=== PATIENT | male | born 1975 | race Caucasian/White ===

== ENCOUNTER 2019-09-16 01:07 | Day surgery (SDC) | payer BC, SELFPAY ==
[2019-09-09 10:03] VITALS: BMI 30.2
--- NOTE | 2019-09-14 12:08 | P.HP_ITS ---
H&P: HPI History of Present Illness Chief complaint: Rotator Cuff Tear Narrative: Efe Montemayor is a 44 year old male Who presents with chronic ongoing history of right shoulder pain. He notes weakness and pain with overhead type motion and try to do anything heavy repetitive. This occurred after a pulling type injury back in May of 2019. he has had ongoing pain despite conservative measures including cortisone therapy and anti-inflammatories. His daily activities are limited because of the pain he has trouble sleeping at night his pain is worse with activity somewhat relieved by rest. He has aching and pain and shoulder radiates into his upper arm. Prior to the injury he did not describe any significant problems with the shoulder. An MRI scan at this time shows a small partial thickness tear of the infraspinatus and supraspinatus tendons. There is attenuation of the supraspinatus tendon no evidence of a full-thickness rotator cuff tendon tear is seen. He does have AC joint hypertrophy and synovitis with a type 2-3 acromion. He has irregularity of the anterior labrum suggestive of a small tear labrum is not well characterized on the MRI. The long head of the biceps tendon is not well characterized which may be due to a torn retracted tendon versus severe tendinosis. At this point the patient is where the above findings and discuss further treatment options in detail with Dr. Pavon he would now like to proceed with surgical intervention. Review of Systems Review of Systems: All systems reviewed & are unremarkable except as noted in HPI and below Meds Home Medications and Allergies Home Medications Medication Instructions Recorded Confirmed Type omeprazole 40 mg capsule,delayed 40 mg PO DAILY #30 cap 07/07/19 09/09/19 Rx release ibuprofen 400 mg PO Q6H PRN 09/09/19 09/09/19 History Allergies Allergy/AdvReac Type Severity Reaction Status Date / Time lactose Allergy Gastrointestinal Verified 09/09/19 10:04 Upset Exam Narrative: Exam Narrative: HEENT exam within normal limits hearing and vision are intact. Dentition is good. Lungs clear auscultation. Pulse regular rate rhythm. Abdomen benign bowel sounds positive for quads. Extremities showed the patient's right shoulder to be painful with manipulation and range of motion. He has a positive impingement sign and painful giving way with rotator cuff strength testing. He has full passive and active motion. He has full painless neck motion. Shoulder joint is otherwise stable. Neurovascular the patient is intact. MRI scan is as above. Central nervous system exam within n ormal limits. Assessment and Plan Additional Plan By MRI and exam the patient is noted to have impingement with rotator cuff tendinitis AC joint arthrosis and partial-thickness rotator cuff tendon tear right shoulder, possible biceps/ labral pathology with the above associated findings. The patient is discussed Risks benefits limitations and alternatives to surgery in great detail with Dr. Pavon and he is now ready to proceed with right shoulder arthroscopy acromioplasty open distal clavicle excision rotator cuff tendon debridement and/or repair proceed as indicated with possible biceps tendon release versus tenodesis. the patient is scheduled to go surgery 09/16/2019 at [facility] Dr. Pavon the patient voiced understanding agrees above plan.
[2019-09-16] VITALS (9 sets, daily range): BP systolic 86–130; BP diastolic 49–86; PULSE 72–85; RESP 17–24; TEMP 36.4–36.9; O2SAT 90–98
--- NOTE | 2019-09-16 07:04 | WPDHPUPDATE1 ---
History and Physical Update Update Date/Time: 09/16/19 07:04 History and Physical has been reviewed, including an updated exam of the patient. There are NO changes in the patient's condition. Risks, benefits, and alternatives have been discussed and questions answered. Patient agrees to proceed with procedure.
[2019-09-16] MEDS: LACTATED RINGERS 1,000 ML 30 ML IV CONT ×2 (07:58→10:20)
--- NOTE | 2019-09-16 08:01 | WPDANESEPPF ---
Anes - Initial Pre Proc Eval Procedure: Operation Date: 09/16/19 09:00 Proposed Procedures p Right Shoulder Arthroscopy, Acromioplasty, Open Distal Clavicle Excision, Rotator Cuff Debridement, Rotator Cuff Repair, Bicep Release, Proceed as Indicated - Ye Pavon MD Date/Time: 09/16/19 08:01 Surgeon: Ye Pavon MD Pre Op Diagnosis: Rotator Cuff Tear Patient Data Age: 44 Gender: M Height: 5 ft 1 in Weight: 72.5 kg Last Vital Signs Temp 36.9 C 09/16/19 07:12 Pulse 85 09/16/19 07:12 Resp 20 09/16/19 07:12 BP 130/86 09/16/19 07:12 Pulse Ox 98 09/16/19 07:12 Allergies Allergy/AdvReac Type Severity Reaction Status Date / Time lactose Allergy Gastrointestinal Verified 09/16/19 07:50 Upset Home Medications Medication Instructions Recorded Confirmed Type omeprazole 40 mg capsule,delayed 40 mg PO DAILY #30 cap 07/07/19 09/16/19 Rx release ibuprofen 400 mg PO Q6H PRN 09/09/19 09/16/19 History Patient hx anesthesia problems: none Family hx anesthesia problems: none PMFSH Past Medical History Medical History Obesity Smoker Anes - Eval Final PreProcedure Day of Procedure 09/16/19 08:01 Patient weight: obese Heart: regular rate and rhythm Lungs: clear to auscultation Airway: Mallampati scale class II Neurological: alert and oriented Last oral intake: >/= 8 hours ASA classification: II Emergent: no Anesthetic plan: proceed Anesthesia type and monitoring: general ETT and standard monitoring Informed Consent: The patient's anesthetic plan and its attendant risks and benefits were discussed with the patient/family/POA. Questions were solicited and answers provided to the satisfaction of the patient/family/POA.
--- NOTE | 2019-09-16 08:48 | WPDANESPNB ---
Anes - Peripheral Nerve Block Date/Time: 09/16/19 08:48 I have discussed with the patient/family/POA the placement of a peripheral nerve block for post-operative pain management, including associated risks, benefits, complications, and side effects. Alternative methods of post-operative analgesia were detailed. Questions were solicited and answers provided to the satisfaction of the patient/family/POA. Time-Out: A pre-procedural Time-Out was completed immediately before starting the procedure and confirmed: Patient Identification, Site, Procedure, Patient Position and the Availability of Requisite Equipment. Clinical Indications: Acute post-operative pain management requested by the operative surgeon. Nerve Block Insertion Note Anes-nerve block: interscalene right Patient position: supine Skin prep: chlorhexidine Needle: 22 gauge, stimulating, insulated echogenic needle. Needle length: 50 mm Technique: ultrasound Injectate: bupivacaine 0.5% with epi 5 mcg/ml (30) and dexamethasone (mg) (8) Observations: tolerated well Complications: none Procedure start time:: 839 Procedure end time:: 847
[2019-09-16] MEDS: ceFAZolin 2 GM/D5W 50 ML 2 GM/50 ML BAG IVPB (08:54)
[2019-09-16] MEDS: LIDO 1%/EPINEPHRINE 1:100,000 20 ML VIAL INFILTRATE (09:32)
--- NOTE | 2019-09-16 09:58 | P.OP_ITS ---
Procedure Note - Detailed Date of procedure: 09/16/19 Pre-op diagnosis: Rotator Cuff Tear Post-op diagnosis: same Anesthesia: GETA Surgeon: Ye Pavon MD Fle[employer] Market Seller: Jonathon Dean Estimated blood loss (mL): 50 Drains: No Packing: No Pathology: none sent Complications: No immediate complications Condition: stable Disposition: PACU
--- NOTE | 2019-09-16 10:00 | PM.PROC ---
Procedure Note - Detailed Date of procedure: 09/16/19 Pre-op diagnosis: Rotator Cuff Tear Procedure performed: [side] carpal tunnel release Description of procedure: After sterile prep and drape, I injected the area of intended incision with 10ml of 1% lidocaine. A longitudinal incision was made in line with the ulnar boarder of the third finger. Disection carried down to the fascia, the fascia split and the carpal ligament identified. The carpal ligament was released and the flexor retinaculum was released as well. The nerve was noted to be red purple in color and in continuity. The wound was irrigated, hemostatis was obtained and closed with 3-0 prolene. Anesthesia: MAC Surgeon: Ye Pavon MD Estimated blood loss (mL): 5 Drains: No Packing: No Pathology: none sent Complications: No immediate complications Condition: stable Disposition: same day
--- NOTE | 2019-09-16 10:01 | PM.PROC ---
Procedure Note - Detailed Date of procedure: 09/16/19 Pre-op diagnosis: Rotator Cuff Tear Rotator Cuff tear RIght A/C Arthrosis Biceps Rupture Post-op diagnosis: same Description of procedure: Patient brought to OR 7. After anesthetic and sterile prep and drape standard posterior and lateral portals made. Arthroscopy showed a large Rotator cuff tear (Nickel Sized) and rupture of the biceps. The Biceps stump was debrided. An acromioplasty performed with an abrader. A longitudinal incsision then made and the A/C joint was degenerative and hypertrophic. A distal clavicle procedure performed, removing 3 mm of distal clavicle. The edges debrided smooth. The deltoid split for 2 cm and the rotator cuff tear found and debrided. The greater tuberosity debrided to make a bleeding surface and he cuff sewn down qith 4 #2 ethibond sutures. The deltoin was repaired to itself, the acromion and the trapezius. Skin close with 2-0 Vicryl and michael. Anesthesia: GETA Surgeon: Ye Pavon MD Clinical Documentation Clerk: Jonathon Dean Estimated blood loss (mL): 50 Drains: No Packing: No Pathology: none sent Complications: No immediate complications Condition: stable Disposition: PACU Findings: Large rotator cuff tear (Nickel Sized) A/C arthrosis Biceps rupture
== END 2019-09-16 12:40 | disposition home or self-care (01) ==
PROVIDERS: PCP Internal Medicine; Visit Provider Orthopaedic Surgery
PROC: (CPT 29805; principal; 2019-09-16 09:00)
DX: S46.011A Strain of muscle(s) and tendon(s) of the rotator cuff of right shoulder, initial encounter (principal); S46.111A Strain of muscle, fascia and tendon of long head of biceps, right arm, initial encounter; X50.0XXA Overexertion from strenuous movement or load, initial encounter; M19.011 Primary osteoarthritis, right shoulder; G89.18 Other acute postprocedural pain; E66.9 Obesity, unspecified; Z68.30 Body mass index [BMI] 30.0-30.9, adult
CPT/HCPCS: 23410; 23120; 64415; A4565; J0131; J0330; J0690; J1100; J2250; J2370; J2405; J2704; J3010; J7120

== ENCOUNTER 2019-12-20 20:56 | Emergency (ER) | payer BC, SELFPAY ==
--- NOTE | ~2019-12-20 | XR_ITS ---
EXAMINATION: XR abdomen/kub 1V DATE: 12/20/2019 22:24 INDICATION: Kidney stones with right lower abdominal pain. TECHNIQUE: A supine view of the abdomen on 2 radiographs was obtained. COMPARISON: CT dated 12/20/2019 FINDINGS: Excreted contrast in the renal collecting systems, bladder and throughout much of the left ureter fro m the immediately prior contrast enhanced CT. There is moderate right hydronephrosis. No left-sided h ydroureteronephrosis. A few phleboliths in the pelvis. Normal bowel gas pattern. IMPRESSION: 1. Moderate right hydronephrosis. See immediately prior CT report for further detail. Reviewed, dictated and finalized at location A. IMPRESSION: 1. Moderate right hydronephrosis. See immediately prior CT report for further d etail.
--- NOTE | ~2019-12-20 | CT_ITS ---
EXAMINATION: CT abdomen pelvis w con DATE: 12/20/2019 22:11 INDICATION: Right lower abdominal pain. TECHNIQUE: Computed tomography (CT) of the abdomen and pelvis was performed without intravenous contr ast. Automated exposure control and iterative reconstruction technique were employed. The dose-length product was 699.57 mGy-cm. COMPARISON: 06/06/2018 FINDINGS: 7 mm subpleural nodule at the lingula. Mild mosaic attenuation with scattered groundglass opacities a nd intervening lucency in the bilateral lower lung zones most likely mild atelectasis and subsegmenta l air trapping related to small airway disease. Heart size is normal. No pericardial or pleural effus ion. Mild lower esophageal wall thickening which could be related to reflux. Liver, gallbladder, spleen, pancreas and bilateral adrenal glands are normal. Moderate right hydronep hrosis and mildly delayed right nephrogram. There is subtle haziness to the fat surrounding the proxi mal most right ureter where there appears be urothelial enhancement no obstructing stone. A 2 mm ston e is located in the dependent midline of the bladder suggesting the findings on the right may be rela chemo to recent passage of the stone. There are 3 additional stones in the right kidney the largest clementina suring 2 mm and 3 mm in a lower pole calyx. 2 mm nonobstructing stone in a lower pole calyx of the le ft kidney. There is mild colonic diverticulosis with a sigmoid predominance. There is no adjacent in flammatory change to suggest diverticulitis. Small bowel and appendix are normal. No free intraperito olivia gas or fluid. No pathologically enlarged abdominal or pelvic lymphadenopathy. Minimal scattered degenerative skeletal changes. IMPRESSION: 1. Bilateral nephrolithiasis and moderate right hydronephrosis about the proximal right ureter which may be related to recent passage of a 2 mm stone now seen in the dependent bladder. The delayed right nephrogram suggests persistent at least partial obstruction which may be related to residual obstruc tion secondary to ureteral edema or stricture. 2. Indeterminate 7 mm nodule at the lingula. Recommend follow-up low-dose noncontrast chest CT at 6-1 2 months. Reviewed, dictated and finalized at location A. IMPRESSION: 1. Bilateral nephrolithiasis and moderate right hydronephrosis about the proxim al right ureter which may be related to recent passage of a 2 mm stone now seen in the dependent bladder. The delayed right nephrogram suggests persistent at least partial obstruction which may be related to residual obstruction secondar y to ureteral edema or stricture. 2. Indeterminate 7 mm nodule at the lingula. Recommend follow-up low-dose nonco ntrast chest CT at 6-12 months.
[2019-12-20 21:01] VITALS: BP 142/84; PULSE 73; RESP 20; TEMP 36.2; O2SAT 99
[2019-12-20 21:24] LABS: Basophils Absolute Auto 0.1 K/mm3 (0.0-0.1); Basophils Percent Auto 0.8 % (0.2-1.2); Eosinophils Absolute Auto 1.7 K/mm3 (0-0.3); Hematocrit 42.2 % (42.0-52.0); Hemoglobin 14.4 g/dL (14.0-18.0); Immature Granulocyte Absolute 0.02 K/mm3 (0.00-0.031); Immature Granulocyte Percent A 0.2 % (0-0.5); Lymphocytes Absolute Auto 4.94 K/mm3 (0.9-3.2); Lymphocytes Percent Auto 45.7 % (18.3-44.2); Mean Corpuscular HGB Conc 34.1 g/dl (32-36); Mean Corpuscular Hemoglobin 34.6 pg (26-34); Mean Corpuscular Volume 101.4 fl (80-100); Monocytes Percent Auto 9.3 % (2.6-8.5); Platelet Count Result 297 k/mm3 (150-375); Red Blood Count 4.16 M/mm3 (4.6-6.20); Red Cell Distribution Width 12.8 % (11.5-14.5); White Blood Count 10.8 K/mm3 (4.5-10.0)
[2019-12-20 21:29] LABS: Add Urine Microscopic? YES; Appearance Urine Clear (Clear); Bilirubin Urine Negative (Negative); Blood Urine 3+ (Negative); Color Urine Yellow (Yellow); Glucose Urine UA Negative (Negative); Ketones Urine Negative (Negative); Leukocyte Esterase Ur Negative LEU/UL (Negative); Mucus Urine Heavy /lpf; Nitrate Urine Negative (Negative); Protein Urine 2+ mg/dL (Negative); RBC Urine 51-75 /hpf (0-2); Specific Grav Ur 1.028 (1.001-1.035); Squamous Epithelial Cell Urine Rare /hpf (Few); Urobilinogen Urine Negative mg/dL (<2.0); WBC Urine 0-3 /hpf
[2019-12-20 21:35] LABS: Alanine Aminotransferase 82 U/L (4-50); Albumin Level 4.1 g/dL (3.5-5.1); Alkaline Phosphatase 106 U/L (38-126); Aspartate Amino Transferase 47 U/L (17-59); Bilirubin,Total 0.3 mg/dL (0.2-1.3); Blood Urea Nitrogen 14 mg/dL (9-20); Carbon Dioxide 25 mmol/L (22-30); Chloride 107 mmol/L (98-107); Estimated CRCL calculation 100 ml/min; Estimated Glomerular Filt Rate > 60; Glucose 118 mg/dL (75-110); Lipase 100 U/L (23-300); Potassium 4.3 mmol/L (3.4-5.0); Sodium 140 mmol/L (137-145)
[2019-12-20] MEDS: ONDANSETRON INJ 4 MG/2 ML VIAL IV PUSH (21:49)
[2019-12-20] MEDS: LACTATED RINGERS 1,000 ML 999 ML IV CONT (21:49)
--- NOTE | 2019-12-20 22:18 | ED.ABDPAIN ---
HPI - Abdominal Pain General Chief Complaint: Abdominal Pain Stated Complaint: abd pain Time Seen by Provider: 12/20/19 21:17 Source: patient Mode of arrival: ambulatory History of Present Illness HPI narrative: This patient is a 44 year old male with history of kidney stones who presents for evaluation of right lower abdominal pain. He states this pain has been constant for 1 week and he thought it was just due to gas. He has been taking gas x without relief. Tonight he developed sudden onset of sharp pain to right flank. He states this pain feels like a kidney stone except he is not having pain in his back. He developed nausea and vomiting on his arrival to ER. He denies urinary symptoms. Denies fever. His pain has improved to 2/10. MD elicited complaint: abdominal pain Related Data Home Medications Medication Instructions Recorded Confirmed No Home Medications 12/20/19 12/20/19 Allergies Allergy/AdvReac Type Severity Reaction Status Date / Time No Known Allergies Allergy Verified 12/20/19 21:03 Review of Systems Review of Systems: All systems reviewed & are unremarkable except as noted in HPI and below Constitutional: Constitutional: Denies chills and Denies fever(s) Respiratory: Respiratory: Denies cough and Denies dyspnea Gastrointestinal: Gastrointestinal: Reports abdominal pain, Denies constipation, Denies diarrhea, Reports nausea and Reports vomiting Genitourinary: Genitourinary: Denies hematuria, Denies oliguria, Denies dysuria and Denies urinary frequency Musculoskeletal: Musculoskeletal: Denies back pain and Denies muscle cramps PMFSH Past Medical History Medical History Kidney stones Obesity Smoker Surgical History Surgical History (Updated 12/20/19 @ 22:19 by Fozia Fitch MD) H/O lithotripsy Exam Narrative: Exam Narrative: GENERAL: Well-appearing, well-nourished, and in no acute distress. HEAD: Normocephalic, atraumatic EYES: PERRLA and EOMI, conjunctiva clear without discharge THROAT:Mucous membranes moist, Oropharynx normal without erythema, exudate, peritonsillar swelling or fluctuance NECK: Supple, without lymphadenopathy or mass RESPIRATORY: No respiratory distress, Airway patent, Respirations non-labored, Clear to auscultation without rales, rhonchi or wheeze HEART: Regular rate and rhythm. No murmur heard. Normal peripheral pulses. ABDOMEN: Soft, RLQ, right CVA, nondistended, normal active bowel sounds. No masses. No rebound or guarding, No organomegaly. EXTREMITIES: No edema, normal strength with full range of motion. SKIN: Warm, dry, normal color without rash NEURO: Alert and oriented x3. CN 2-12 grossly intact. No focal deficits. PSYCH: Normal mood and affect. Course Reevaluation(s) Reevaluation #1: Patient states he feels better. He has not cardiopulmonary symptoms. He has no respiratory symptoms. I discussed CT. He is ready for discharge. Date: 12/20/19 Time: 22:45 Vital Signs Vital signs: Vital Signs Temperature 97.1 F L 12/20/19 21:01 Pulse Rate 73 12/20/19 21:01 Respiratory Rate 20 12/20/19 21:01 Blood Pressure 142/84 H 12/20/19 21:01 Pulse Oximetry 99 12/20/19 21:01 Temperature 97.1 F L 12/20/19 21:01 Pulse Rate 74 12/20/19 23:02 Respiratory Rate 18 12/20/19 23:02 Blood Pressure 130/69 12/20/19 23:02 Pulse Oximetry 98 12/20/19 23:02 MDM - Abdominal Pain Lab Data Attestation: I reviewed the patient's lab results. Result diagrams: 12/20/19 21:15 12/20/19 21:15 Labs: Lab Results 12/20/19 12/20/19 12/20/19 Range/Units 21:15 21:15 21:17 WBC 10.8 H (4.5-10.0) K/mm3 RBC 4.16 L (4.6-6.20) M/mm3 Hgb 14.4 (14.0-18.0) g/dL Hct 42.2 (42.0-52.0) % MCV 101.4 H (80-100) fl MCH 34.6 H (26-34) pg MCHC 34.1 (32-36) g/dl RDW 12.8 (11.5-14.5) % Plt Count 297 (150-375) k/mm3 MPV 11.0 H (7.4-10.4) fl Immature Gran % (Auto)
[2019-12-20 23:02] VITALS: BP 130/69; PULSE 74; RESP 18; O2SAT 98
== END 2019-12-20 23:03 | disposition home or self-care (01) ==
PROVIDERS: Emergency Provider General Practice; PCP Internal Medicine
DX: N13.2 Hydronephrosis with renal and ureteral calculous obstruction (principal); E66.9 Obesity, unspecified; Z68.31 Body mass index [BMI] 31.0-31.9, adult; F17.200 Nicotine dependence, unspecified, uncomplicated; Z87.442 Personal history of urinary calculi; R91.1 Solitary pulmonary nodule
CPT/HCPCS: 36415; 74018; 74177; 80053; 81001; 83690; 85025; 96361; 96374; 99284; J2405; J7120; Q9967

== ENCOUNTER 2020-01-06 08:33 | Outpatient (CLI) | payer BC, SELFPAY ==
[2020-01-06 09:06] LABS: Add Urine Microscopic? YES; Appearance Urine Clear (Clear); Bacteria Urine Trace /hpf; Bilirubin Urine Negative (Negative); Blood Urine Negative (Negative); Color Urine Yellow (Yellow); Glucose Urine UA Negative (Negative); Ketones Urine 1+ mg/dL (Negative); Leukocyte Esterase Ur Negative LEU/UL (NEGATIVE); Mucus Urine Few /lpf; Nitrate Urine Negative (Negative); Protein Urine Negative (Negative); Specific Grav Ur 1.027 (1.001-1.035); WBC Urine 0-3 /hpf (0-3)
[2020-01-06 09:13] LABS: Albumin Level 4.2 g/dL (3.5-5.1); Blood Urea Nitrogen 12 mg/dL (9-20); Calcium 8.9 mg/dL (8.4-10.2); Carbon Dioxide 24 mmol/L (22-30); Chloride 107 mmol/L (98-107); Estimated Glomerular Filt Rate > 60; Glucose 106 mg/dL (75-110); Potassium 3.9 mmol/L (3.4-5.0); Sodium 137 mmol/L (137-145)
== END 2020-01-06 08:34 | disposition home or self-care (01) ==
PROVIDERS: PCP Internal Medicine; Visit Provider Internal Medicine Nephrology
DX: N20.0 Calculus of kidney (principal)
CPT/HCPCS: 36415; 80069; 81001

== ENCOUNTER 2020-01-26 00:30 | Outpatient (CLI) | payer BC, SELFPAY ==
[2020-01-26 17:56] LABS: SARS-CoV-2 RNA PCR Negative
== END 2020-01-26 00:31 | disposition home or self-care (01) ==
LOC: ANHCOVIDDT 00:30
PROVIDERS: PCP Internal Medicine; Visit Provider Internal Medicine Gastroenterology
DX: Z01.812 Encounter for preprocedural laboratory examination (principal); Z11.59 Encounter for screening for other viral diseases
CPT/HCPCS: 87635; C9803; U0003

== ENCOUNTER 2020-01-28 02:09 | Day surgery (SDC) | payer BC, SELFPAY ==
[2020-01-18 14:43] VITALS: BMI 30.4
[2020-01-28 07:47] VITALS: BP 117/80; PULSE 77; RESP 18; TEMP 36.5; O2SAT 98; BMI 32.1
[2020-01-28] MEDS: LACTATED RINGERS 1,000 ML 150 ML IV CONT (08:07)
--- NOTE | 2020-01-28 08:20 | WPDANESEPPF ---
Anes - Initial Pre Proc Eval Procedure: Operation Date: 01/28/20 08:30 Proposed Procedures p Esophagogastroduodenoscopy & Colonoscopy - Wilmer Jett MD Date/Time: 01/28/20 08:20 Surgeon: Wilmer Jett MD Pre Op Diagnosis: Change in bowel habits, diarrhea, abdominal pain Patient Data Age: 44 Gender: M Height: 5 ft 1 in Weight: 77.1 kg Last Vital Signs Temp 97.7 F 01/28/20 07:47 Pulse 77 01/28/20 07:47 Resp 18 01/28/20 07:47 BP 117/80 01/28/20 07:47 Pulse Ox 98 01/28/20 07:47 Allergies Allergy/AdvReac Type Severity Reaction Status Date / Time No Known Allergies Allergy Verified 01/04/20 09:30 Home Medications Medication Instructions Recorded Confirmed Type melatonin 5 mg tablet 5 mg PO .hs PRN tablet 01/04/20 01/18/20 History pantoprazole 40 mg tablet,delayed 40 mg PO QAM #90 tablet 01/04/20 01/18/20 Rx release Patient hx anesthesia problems: none Family hx anesthesia problems: none [facility] Social History Social History Smoking status: Current every day smoker Tobacco type: cigars Second hand tobacco smoke exposure: No Alcohol intake: current Substance use: never Anes - Eval Final PreProcedure Day of Procedure 01/28/20 08:20 Patient weight: normal Heart: regular rate and rhythm Lungs: clear to auscultation Airway: Mallampati scale class II Neurological: alert and oriented Last oral intake: >/= 8 hours ASA classification: II Emergent: no Anesthetic plan: proceed Anesthesia type and monitoring: general GIVS and standard monitoring Informed Consent: The patient's anesthetic plan and its attendant risks and benefits were discussed with the patient/family/POA. Questions were solicited and answers provided to the satisfaction of the patient/family/POA.
--- NOTE | 2020-01-28 08:31 | P.CONGI_ITS ---
Assessment and Plan Assessment and plan (1) Epigastric abdominal pain: Code(s): R10.13 - Epigastric pain Status: Acute Assessment and Plan: Patient has had epigastric pain. Some response to PPI is noted. Plan is to evaluate more thoroughly with an EGD. Continue PPI. Avoid nonsteroidal anti- inflammatory agents. (2) Diarrhea: Code(s): R19.7 - Diarrhea, unspecified Status: Acute Assessment and Plan: Patient had recent change in bowel habits for this reason colonoscopy is requested. Plan is for high-fiber diet as this may be related to irritable bowel syndrome. (3) Family history of colon cancer in father: Code(s): Z80.0 - Family history of malignant neoplasm of digestive organs Status: Acute Assessment and Plan: Patient's father had colon cancer for this reason screening colonoscopy advised at this time. GI Consult Note Consult date/time: 01/28/20 08:31 HPI: Efe Montemayor is a 44 year old male seen in evaluation at the request of Dr Mu Bermudez. Patient reports at least 3 months of ongoing abdominal pain and diarrhea. Patient states diarrhea and urgent loose she shortly after eating. Denies any blood in his stools. He states pain is mid epigastric so mewhat crampy in nature. This observe improved on recent weeks on trying Pantoprazole.. Patient denies any bleeding or weight loss. Family history is significant that his father had colon cancer. Review of Systems Review of Systems: All systems reviewed & are unremarkable except as noted in HPI and below PMFSH Past Medical History Medical History Kidney stones Obesity Smoker Surgical History Surgical History H/O lithotripsy Social History Social History Smoking status: Current every day smoker Tobacco type: cigars Second hand tobacco smoke exposure: No Alcohol intake: current Substance use: never Meds Home Medications and Allergies Home Medications Medication Instructions Recorded Confirmed Type melatonin 5 mg tablet 5 mg PO .hs PRN tablet 01/04/20 01/18/20 History pantoprazole 40 mg tablet,delayed 40 mg PO QAM #90 tablet 01/04/20 01/18/20 Rx release Allergies Allergy/AdvReac Type Severity Reaction Status Date / Time No Known Allergies Allergy Verified 07/06/20 09:30 Vital Signs Vital Signs - 24 hr 01/28/20 07:47 Temperature 97.7 F Pulse Rate 77 Respiratory Rate 18 Blood Pressure 117/80 Pulse Oximetry 98 Exam Narrative: Exam Narrative: Physical exam reveals patient to be alert. Vital signs stable. HEENT exam unremarkable. Lungs are clear to auscultation and percussion. Heart is without murmur or extra sounds. Abdominal exam bowel sounds are present soft nontender with no hepatosplenomegaly. Digital external rectal exam normal.
[2020-01-28 09:13] VITALS: BP 108/70; PULSE 72; RESP 18; O2SAT 99
[2020-01-28 09:23] VITALS: BP 112/76; PULSE 61; RESP 18; O2SAT 99
[2020-01-28 09:31] VITALS: BP 118/75; PULSE 68; RESP 18; O2SAT 100
== END 2020-01-28 09:47 | disposition home or self-care (01) ==
PROVIDERS: PCP Internal Medicine; Visit Provider Internal Medicine Gastroenterology
PROC: 0DJ08ZZ Inspection of Upper Intestinal Tract, Via Natural or Artificial Opening Endoscopic (ICD-10-PCS; CPT 43235; principal; 2020-01-28 08:30)
DX: R10.13 Epigastric pain (principal); R19.7 Diarrhea, unspecified; K57.30 Diverticulosis of large intestine without perforation or abscess without bleeding; K64.8 Other hemorrhoids; K64.4 Residual hemorrhoidal skin tags; Z80.0 Family history of malignant neoplasm of digestive organs; F17.290 Nicotine dependence, other tobacco product, uncomplicated; E66.9 Obesity, unspecified; Z68.32 Body mass index [BMI] 32.0-32.9, adult
CPT/HCPCS: 43239; 45378; 87081; J2704; J7120

== ENCOUNTER 2020-07-20 11:07 | Outpatient (CLI) | payer OTHER, SELFPAY ==
[2020-07-20 11:59] LABS: Add Urine Microscopic? YES; Appearance Urine Clear (Clear); Bilirubin Urine Negative (Negative); Blood Urine Negative (Negative); Color Urine Yellow (Yellow); Glucose Urine UA Negative (Negative); Ketones Urine Negative (Negative); Leukocyte Esterase Ur Negative LEU/UL (Negative); Mucus Urine Rare /lpf; Nitrate Urine Negative (Negative); Protein Urine Negative (Negative); RBC Urine 0-2 /hpf (0-2); Specific Grav Ur 1.015 (1.001-1.035); Squamous Epithelial Cell Urine Rare /hpf (Few); WBC Urine 0-3 /hpf
[2020-07-20 12:02] LABS: Albumin Level 3.8 g/dL (3.5-5.1); Anion Gap 3 mmol/L (8-16); Blood Urea Nitrogen 11 mg/dL (9-20); Calcium 8.8 mg/dL (8.4-10.2); Carbon Dioxide 28 mmol/L (22-30); Chloride 105 mmol/L (98-107); Estimated Glomerular Filt Rate > 60; Glucose 145 mg/dL (75-110); Phosphorus 2.7 mg/dL (2.5-4.5); Potassium 4.2 mmol/L (3.4-5.0); Sodium 136 mmol/L (137-145)
[2020-07-20 12:25] LABS: Creatinine Urine 92.3 mg/dL; Total Protein Urine Random 9 mg/dL
== END 2020-07-20 11:08 | disposition home or self-care (01) ==
PROVIDERS: PCP Internal Medicine; Visit Provider Internal Medicine Nephrology
DX: N20.0 Calculus of kidney (principal)
CPT/HCPCS: 36415; 80069; 81001; 82570; 84156

== ENCOUNTER 2020-10-17 06:49 | Outpatient (CLI) | payer BC, SELFPAY ==
[2020-10-17 07:36] LABS: Basophils Absolute Auto 0.1 K/mm3 (0.0-0.1); Basophils Percent Auto 1.2 % (0.2-1.2); Eosinophils Absolute Auto 1.2 K/mm3 (0-0.3); Eosinophils Percent Auto 16.5 % (0-4.4); Hematocrit 42.4 % (42.0-52.0); Hemoglobin 14.4 g/dL (14.0-18.0); Immature Granulocyte Absolute 0.02 K/mm3 (0.00-0.031); Immature Granulocyte Percent A 0.3 % (0-0.5); Lymphocytes Percent Auto 41.2 % (18.3-44.2); Mean Corpuscular Volume 100.2 fl (80-100); Mean Platelet Volume 11.2 fl (7.4-10.4); Monocytes Absolute Auto 0.7 K/mm3 (0.1-0.6); Monocytes Percent Auto 8.6 % (2.6-8.5); Neutrophils Absolute Auto 2.4 K/mm3 (1.3-6.7); Neutrophils Percent Auto 32.2 % (45.5-73.1); Platelet Count Result 254 k/mm3 (150-375); Red Blood Count 4.23 M/mm3 (4.6-6.20); Red Cell Distribution Width 13.1 % (11.5-14.5); White Blood Count 7.5 K/mm3 (4.5-10.0)
[2020-10-17 07:46] LABS: Alanine Aminotransferase 25 U/L (4-50); Albumin Level 3.7 g/dL (3.5-5.1); Alkaline Phosphatase 58 U/L (38-126); Anion Gap 2 mmol/L (8-16); Aspartate Amino Transferase 29 U/L (17-59); Bilirubin,Total 0.8 mg/dL (0.2-1.3); Blood Urea Nitrogen 11 mg/dL (9-20); Calcium 8.5 mg/dL (8.4-10.2); Carbon Dioxide 27 mmol/L (22-30); Chloride 109 mmol/L (98-107); Cholesterol 138 mg/dL (0-200); Estimated Glomerular Filt Rate > 60; Glucose 115 mg/dL (75-110); HDL Direct 57 mg/dL; Potassium 4.3 mmol/L (3.4-5.0); Sodium 138 mmol/L (137-145); Triglycerides 40 mg/dL (<150)
[2020-10-17 07:58] LABS: LDL Cholesterol Direct 61 mg/dL
[2020-10-17 08:43] LABS: Hemoglobin A1C 5.4 % (<5.7)
== END 2020-10-17 06:50 | disposition home or self-care (01) ==
PROVIDERS: PCP Internal Medicine; Visit Provider Internal Medicine
DX: Z79.899 Other long term (current) drug therapy (principal)
CPT/HCPCS: 36415; 80053; 80061; 83036; 84439; 84443; 85025

== ENCOUNTER → 2020-11-01 08:40 | Outpatient (CLI) | payer BC, SELFPAY ==
[2020-11-02 20:20] LABS: SARS-CoV-2 RNA PCR Negative
== END ==
PROVIDERS: PCP Internal Medicine; Visit Provider Internal Medicine
DX: Z20.822 Contact with and (suspected) exposure to COVID-19 (principal); R68.89 Other general symptoms and signs
CPT/HCPCS: C9803; U0003; U0005

== ENCOUNTER 2020-11-18 09:49 | Outpatient (CLI) | payer BC, SELFPAY ==
--- NOTE | ~2020-11-18 | XR_ITS ---
EXAMINATION: XR abdomen/kub 1V DATE: 11/18/2020 09:57 INDICATION: Kidney stones. TECHNIQUE: A supine view of the abdomen on 2 radiographs was obtained. COMPARISON: CT abdomen and pelvis 12/20/2019 FINDINGS: There are no dilated loops of bowel. There are phleboliths in the pelvis. The kidneys are o bscured by bowel. There is a 4 x 2 mm calcification in the expected area of proximal right ureter at L3. There are two 3 mm densities overlying right kidney that may be kidney stones. IMPRESSION: 1. Stones in the right kidney and proximal right ureter. Reviewed, dictated and finalized at location A.
== END 2020-11-18 09:50 ==
LOC: MICIMG 09:50
PROVIDERS: Visit Provider Internal Medicine
DX: Z87.442 Personal history of urinary calculi (principal)
CPT/HCPCS: 74018

== ENCOUNTER 2021-01-27 07:45 | Outpatient (CLI) | payer BC, SELFPAY ==
[2021-01-27 08:31] LABS: Add Urine Microscopic? YES; Appearance Urine Cloudy (Clear); Bilirubin Urine Negative (Negative); Blood Urine Negative (Negative); Color Urine Yellow (Yellow); Glucose Urine UA Negative (Negative); Ketones Urine Negative (Negative); Leukocyte Esterase Ur Negative LEU/UL (NEGATIVE); Mucus Urine Rare /lpf; Nitrate Urine Negative (Negative); Protein Urine Negative (Negative); Specific Grav Ur 1.018 (1.001-1.035); Squamous Epithelial Cell Urine Rare /hpf (Few); WBC Urine 0-3 /hpf (0-3)
[2021-01-27 08:56] LABS: Albumin Level 3.8 g/dL (3.5-5.1); Anion Gap 7 mmol/L (8-16); Blood Urea Nitrogen 10 mg/dL (9-20); Calcium 9.2 mg/dL (8.4-10.2); Carbon Dioxide 25 mmol/L (22-30); Chloride 106 mmol/L (98-107); Estimated Glomerular Filt Rate > 60; Glucose 94 mg/dL (65-110); Phosphorus 3.8 mg/dL (2.5-4.5); Potassium 4.7 mmol/L (3.4-5.0); Sodium 138 mmol/L (137-145)
[2021-01-27 11:14] LABS: Creatinine Urine 129.5 mg/dL
== END 2021-01-27 07:46 | disposition home or self-care (01) ==
PROVIDERS: PCP Internal Medicine; Visit Provider Internal Medicine Nephrology
DX: N20.0 Calculus of kidney (principal)
CPT/HCPCS: 36415; 80069; 81001; 82570

== ENCOUNTER → 2021-07-27 08:51 | Outpatient (CLI) | payer BC, SELFPAY ==
[2021-07-27 14:33] LABS: Influenza A QL RT-PCR Negative (Negative); Influenza B QL RT-PCR Negative (Negative); SARS-CoV-2 RNA PCR Negative
== END ==
PROVIDERS: PCP Internal Medicine; Visit Provider Internal Medicine
DX: R05.9 Cough, unspecified (principal); Z20.822 Contact with and (suspected) exposure to COVID-19
CPT/HCPCS: 87502; C9803; U0003; U0005

== ENCOUNTER 2021-08-04 14:36 | Outpatient (CLI) | payer BC, SELFPAY ==
[2021-08-04 15:44] LABS: Anion Gap 5 mmol/L (8-16); Blood Urea Nitrogen 7 mg/dL (9-20); Calcium 9.1 mg/dL (8.4-10.2); Carbon Dioxide 25 mmol/L (22-30); Chloride 106 mmol/L (98-107); Cholesterol 207 mg/dL (0-200); Estimated Glomerular Filt Rate > 60; Glucose 99 mg/dL (65-110); HDL Direct 79 mg/dL; Potassium 3.5 mmol/L (3.4-5.0); Sodium 136 mmol/L (137-145); Triglycerides 84 mg/dL (<150)
[2021-08-04 15:55] LABS: LDL Cholesterol Direct 93 mg/dL
[2021-08-04 16:02] LABS: Hemoglobin A1C 5.4 % (<5.7)
[2021-08-08 21:31] LABS: Apolipoprotein B 82 mg/dL (<90)
[2021-08-09 06:32] LABS: Lipoprotein A 48 nmol/L (<75)
== END 2021-08-04 14:37 | disposition home or self-care (01) ==
LOC: ANHLAB 14:38
PROVIDERS: PCP Internal Medicine; Visit Provider Internal Medicine
DX: Z00.00 Encounter for general adult medical examination without abnormal findings (principal); E78.5 Hyperlipidemia, unspecified; K21.9 Gastro-esophageal reflux disease without esophagitis; R73.01 Impaired fasting glucose; Z79.899 Other long term (current) drug therapy; Z82.49 Family history of ischemic heart disease and other diseases of the circulatory system
CPT/HCPCS: 36415; 80048; 80061; 82172; 83036; 83695

== ENCOUNTER 2021-09-22 11:46 | Outpatient (CLI) | payer BC, SELFPAY ==
--- NOTE | ~2021-09-22 | XR_ITS ---
XR knee RT min 4V DATE: 09/22/2021 12:07 INDICATION: Medial knee pain for 3 days following jumping injury TECHNIQUE: 5 views COMPARISON: 03/13/2009 right femur FINDINGS: There is postoperative change of the distal femur and proximal tibia from cruciate ligament repair. No fracture or dislocation or joint effusion. No periosteal reaction or bone destruction. No radiopaq ue intra-articular loose body or chondrocalcinosis. Joint spaces are relatively preserved. IMPRESSION: Status post cruciate ligament repair No fracture or dislocation or joint effusion is evident Reviewed, dictated and finalized at location A.
== END 2021-09-22 11:47 | disposition home or self-care (01) ==
LOC: ANHIMG 11:47
PROVIDERS: PCP Internal Medicine; Visit Provider Internal Medicine
DX: T14.90XA Injury, unspecified, initial encounter (principal)
CPT/HCPCS: 73564

== ENCOUNTER → 2021-12-22 02:16 | Outpatient (CLI) | payer BC, SELFPAY ==
[2021-12-22 12:29] LABS: SARS-CoV-2 RNA PCR Negative
== END ==
PROVIDERS: PCP Internal Medicine; Visit Provider Internal Medicine
DX: R68.89 Other general symptoms and signs (principal); Z20.822 Contact with and (suspected) exposure to COVID-19
CPT/HCPCS: C9803; U0003; U0005

== ENCOUNTER 2022-04-02 07:01 | Outpatient (CLI) | payer BC, SELFPAY ==
[2022-04-02 07:42] LABS: Basophils Absolute Auto 0.1 K/mm3 (0.0-0.1); Basophils Percent Auto 1.2 % (0.2-1.2); Eosinophils Absolute Auto 1.6 K/mm3 (0-0.3); Eosinophils Percent Auto 22.3 % (0-4.4); Hemoglobin 14.8 g/dL (14.0-18.0); Immature Granulocyte Absolute 0.01 K/mm3 (0.00-0.031); Immature Granulocyte Percent A 0.1 % (0-0.5); Lymphocytes Absolute Auto 3.41 K/mm3 (0.9-3.2); Lymphocytes Percent Auto 46.7 % (18.3-44.2); Mean Corpuscular HGB Conc 34.4 g/dl (32-36); Mean Corpuscular Volume 101.7 fl (80-100); Monocytes Absolute Auto 0.6 K/mm3 (0.1-0.6); Monocytes Percent Auto 8.6 % (2.6-8.5); Neutrophils Absolute Auto 1.5 K/mm3 (1.3-6.7); Neutrophils Percent Auto 21.1 % (45.5-73.1); Platelet Count Result 274 k/mm3 (150-375); Red Blood Count 4.23 M/mm3 (4.6-6.20); Red Cell Distribution Width 13.3 % (11.5-14.5); White Blood Count 7.3 K/mm3 (4.5-10.0)
[2022-04-02 07:51] LABS: Alanine Aminotransferase 21 U/L (6-50); Albumin Level 4.1 g/dL (3.5-5.1); Alkaline Phosphatase 64 U/L (38-126); Anion Gap 8 mmol/L (8-16); Aspartate Amino Transferase 24 U/L (17-59); Bilirubin,Total 0.8 mg/dL (0.2-1.3); Blood Urea Nitrogen 11 mg/dL (9-20); Calcium 8.9 mg/dL (8.4-10.2); Carbon Dioxide 23 mmol/L (22-30); Chloride 108 mmol/L (98-107); Cholesterol 154 mg/dL (0-200); Estimated Glomerular Filt Rate > 60; Glucose 122 mg/dL (65-110); HDL Direct 69 mg/dL; Potassium 3.9 mmol/L (3.4-5.0); Sodium 139 mmol/L (137-145); Triglycerides 50 mg/dL (<150)
[2022-04-02 08:02] LABS: LDL Cholesterol Direct 67 mg/dL
[2022-04-05 21:06] LABS: Apolipoprotein B 65 mg/dL (<90)
== END 2022-04-02 07:02 | disposition home or self-care (01) ==
PROVIDERS: PCP Internal Medicine; Visit Provider Internal Medicine
DX: E78.2 Mixed hyperlipidemia (principal); Z51.81 Encounter for therapeutic drug level monitoring; Z79.899 Other long term (current) drug therapy; Z82.49 Family history of ischemic heart disease and other diseases of the circulatory system
CPT/HCPCS: 36415; 80053; 80061; 82172; 84439; 84443; 85025

== ENCOUNTER 2022-04-06 09:59 | Outpatient (CLI) | payer BC, SELFPAY ==
[2022-04-06 10:16] LABS: Hematocrit 42.8 % (42.0-52.0); Hemoglobin 14.6 g/dL (14.0-18.0); Mean Corpuscular HGB Conc 34.1 g/dl (32-36); Mean Corpuscular Hemoglobin 35.1 pg (26-34); Mean Corpuscular Volume 102.9 fl (80-100); Mean Platelet Volume 10.6 fl (7.4-10.4); Platelet Count Result 259 k/mm3 (150-375); Red Blood Count 4.16 M/mm3 (4.6-6.20); Red Cell Distribution Width 13.2 % (11.5-14.5); White Blood Count 5.7 K/mm3 (4.5-10.0)
[2022-04-06 12:03] LABS: Band Neutrophils Percent 50 % (0-6); Basophils Absolute Manual 0.05 K/mm3 (0.0-0.1); Basophils Percent Manual 1 % (0-1); Eosinophils Absolute Manual 0.57 K/mm3 (0.02-0.5); Eosinophils Percent Manual 10 % (0-4); Monocytes Absolute Manual 0.62 K/mm3 (0.1-0.90); Monocytes Percent Manual 11 % (3-9); Neutrophils Absolute Manual 4.44 K/mm3 (1.3-6.7); Neutrophils Percent Manual 28 % (46-73); Platelet Estimate Adequate (Adequate); Schistocytes None Seen (NORMAL); Total Cells Counted 100
[2022-04-06 13:26] LABS: Hemoglobin A1C 5.5 % (<5.7)
== END 2022-04-06 10:00 | disposition home or self-care (01) ==
LOC: ANHLAB 10:00
PROVIDERS: PCP Internal Medicine; Visit Provider Internal Medicine
DX: R73.9 Hyperglycemia, unspecified (principal); D72.10 Eosinophilia, unspecified
CPT/HCPCS: 36415; 83036; 85025

== ENCOUNTER 2022-06-15 12:13 | Outpatient (CLI) | payer OTHER, BC, SELFPAY ==
[2022-06-15 12:37] LABS: Basophils Absolute Auto 0.1 K/mm3 (0.0-0.1); Basophils Percent Auto 1.2 % (0.2-1.2); Eosinophils Absolute Auto 0.5 K/mm3 (0-0.3); Eosinophils Percent Auto 7.9 % (0-4.4); Hematocrit 41.2 % (42.0-52.0); Immature Granulocyte Absolute 0.02 K/mm3 (0.00-0.031); Immature Granulocyte Percent A 0.3 % (0-0.5); Lymphocytes Absolute Auto 2.71 K/mm3 (0.9-3.2); Lymphocytes Percent Auto 44.7 % (18.3-44.2); Mean Corpuscular Hemoglobin 34.6 pg (26-34); Mean Corpuscular Volume 101.7 fl (80-100); Mean Platelet Volume 10.3 fl (7.4-10.4); Monocytes Absolute Auto 0.7 K/mm3 (0.1-0.6); Monocytes Percent Auto 11.9 % (2.6-8.5); Neutrophils Absolute Auto 2.1 K/mm3 (1.3-6.7); Platelet Count Result 318 k/mm3 (150-375); Red Blood Count 4.05 M/mm3 (4.6-6.20); Red Cell Distribution Width 12.9 % (11.5-14.5); White Blood Count 6.1 K/mm3 (4.5-10.0)
[2022-06-15 12:44] LABS: Blood Urea Nitrogen 9 mg/dL (8-26); Carbon Dioxide 24 mmol/L (22-30); Chloride 103 mmol/L (98-109); Estimated Glomerular Filt Rate > 60; Glucose 88 mg/dL (70-105); Ionized Calcium (POC) 1.16 mmol/L (1.11-1.31); Potassium 4.3 mmol/L (3.5-4.9); Sodium 139 mmol/L (138-146)
[2022-06-15 15:24] LABS: Erythrocyte Sedimentation Rate 6 mm/hr (0-20)
[2022-06-15 15:24] LABS: Alanine Aminotransferase 42 U/L (6-50); Albumin Level 3.9 g/dL (3.5-5.1); Alkaline Phosphatase 74 U/L (38-126); Anion Gap 5 mmol/L (8-16); Aspartate Amino Transferase 48 U/L (17-59); Bilirubin,Total 0.9 mg/dL (0.2-1.3); Blood Urea Nitrogen 10 mg/dL (9-20); CRP 0.6 mg/dL (<1.0); Calcium 8.5 mg/dL (8.4-10.2); Carbon Dioxide 26 mmol/L (22-30); Chloride 106 mmol/L (98-107); Estimated Glomerular Filt Rate > 60; Glucose 89 mg/dL (65-110); Potassium 4.2 mmol/L (3.4-5.0); Sodium 137 mmol/L (137-145)
== END 2022-06-15 12:14 | disposition home or self-care (01) ==
LOC: ANHLAB 12:16
PROVIDERS: PCP Internal Medicine; Visit Provider Internal Medicine Hematology & Oncology
DX: M19.90 Unspecified osteoarthritis, unspecified site (principal); R11.0 Nausea
CPT/HCPCS: 36415; 80047; 80053; 85025; 85652; 86140; 88184

== ENCOUNTER 2022-10-12 06:55 | Outpatient (CLI) | payer OTHER, SELFPAY ==
[2022-10-12 08:01] LABS: Free T4 Free Thyroxine 1.27 ng/mL (0.78-2.19); Vitamin D 25 Hydroxy 20.7 ng/mL
[2022-10-12 08:25] LABS: Hematocrit 43.8 % (42.0-52.0); Hemoglobin 14.9 g/dL (14.0-18.0); Mean Corpuscular Hemoglobin 34.7 pg (26-34); Mean Corpuscular Volume 102.1 fl (80-100); Mean Platelet Volume 10.9 fl (7.4-10.4); Platelet Count Result 249 k/mm3 (150-375); Red Blood Count 4.29 M/mm3 (4.6-6.20); Red Cell Distribution Width 13.2 % (11.5-14.5)
[2022-10-12 09:13] LABS: Band Neutrophils Percent 2 % (0-6); Eosinophils Absolute Manual 0.98 K/mm3 (0.02-0.5); Eosinophils Percent Manual 14 % (0-4); Lymphocytes Absolute Manual 3.29 K/mm3 (1.1-4.5); Lymphocytes Percent Manual 47 % (18-44); Monocytes Absolute Manual 0.63 K/mm3 (0.1-0.90); Monocytes Percent Manual 9 % (3-9); Neutrophils Absolute Manual 2.03 K/mm3 (1.3-6.7); Neutrophils Percent Manual 27 % (46-73); Platelet Estimate Adequate (Adequate); Schistocytes None Seen (NORMAL); Total Cells Counted 100
[2022-10-12 09:25] LABS: Hemoglobin A1C 5.3 % (<5.7)
[2022-10-12 09:36] LABS: Cholesterol 150 mg/dL (0-200); HDL Direct 71 mg/dL; Triglycerides 37 mg/dL (<150)
[2022-10-12 09:49] LABS: LDL Cholesterol Direct 62 mg/dL
[2022-10-12 10:08] LABS: Prostate Specific Antigen 0.5 ng/mL (< OR = 4.0)
== END 2022-10-12 06:56 | disposition home or self-care (01) ==
LOC: ANHLAB 06:57
PROVIDERS: PCP Internal Medicine; Visit Provider Internal Medicine
DX: Z13.29 Encounter for screening for other suspected endocrine disorder (principal); E55.9 Vitamin D deficiency, unspecified; R73.09 Other abnormal glucose; D72.10 Eosinophilia, unspecified; E78.2 Mixed hyperlipidemia; Z12.5 Encounter for screening for malignant neoplasm of prostate; Z79.899 Other long term (current) drug therapy
CPT/HCPCS: 36415; 80061; 82306; 83036; 84153; 84439; 84443; 85025; G0103

== ENCOUNTER 2022-11-17 14:01 | Emergency (ER) | payer OTHER, SELFPAY ==
[2022-11-17 14:11] VITALS: BP 128/74; PULSE 76; RESP 16; TEMP 37.3; O2SAT 100
--- NOTE | 2022-11-17 14:48 | ED.GENADULT ---
HPI - General Adult General Chief complaint: Dizziness Stated complaint: dizziness; lightheaded; ear-ache; Time Seen by Provider: 11/17/22 14:48 Source: patient Mode of arrival: ambulatory Limitations: no limitations History of Present Illness HPI narrative: 47-year-old male presents with complaint of dizziness that started while he was at work. no dizziness at this time unless he moves head. States he was standing up front counter at work and he turned his head to the right to talk with his boss and he became very dizzy. States episode lasted approximately 1 hour. [facility] by his mother. Denies N/V. Reports runny nose, PND for past week. Had R ear pain 5 days ago but not since then. Patient alert and talkative. Ambulatory with steady gait. All systems reviewed and negative except as noted above. Related Data Home Medications Medication Instructions Recorded Confirmed cholecalciferol (vitamin D3) 1,250 1,250 mcg PO WEEKLY 11/17/22 11/17/22 mcg (50,000 unit) capsule Allergies Allergy/AdvReac Type Severity Reaction Status Date / Time No Known Allergies Allergy Verified 11/17/22 14:30 Review of Systems Review of Systems: CONSTITUTIONAL: Denies fever, chills, or sweats. EYES: Denies visual changes, redness, or discharge. ENT: Reports rhinorrhea, congestion, right ear pain. Denies sore throat CARDIOVASCULAR: Denies chest pain, palpitations, or edema. RESPIRATORY: Denies cough or dyspnea. GASTROINTESTINAL: Denies abdominal pain, nausea, vomiting, or diarrhea. GENITOURINARY: Denies dysuria or hematuria. SKIN: Denies rash or itching. MUSCULOSKELETAL: Denies back pain, joint pain, or myalgia. NEUROLOGIC: Denies headache, numbness, or weakness. PSYCHIATRIC: Denies anxiety or depression. All other systems reviewed are negative, except as documented in HPI. [facility] Past Medical History Medical History (Updated 11/17/22 @ 14:58 by Karoline Kramer NP) Annual physical exam BMI 27.0-27.9,adult BMI 28.0-28.9,adult BMI 31.0-31.9,adult Colon cancer screening Cough Elevated fasting glucose Elevated glucose Encounter for routine adult health examination with abnormal findings Encounter for routine adult health examination without abnormal findings Encounter to establish care Family history of heart disease Ganglion cyst of dorsum of right wrist GERD (gastroesophageal reflux disease) Hiccups History of kidney stones Hyperlipidemia Kidney stones Obesity On half-way drug therapy Smoker Tobacco abuse Vitamin D deficiency Surgical History Surgical History H/O lithotripsy Family History Family History Mother Ovarian cancer Mother Hypertension Family history of malignant neoplasm Patient's mother is in good health Family history of malignant neoplasm of ovary Father Hypertension Family history of coronary artery disease Family history of malignant neoplasm of skin Grandparent Family history of cardiovascular disease Family history of malignant neoplasm Family history of coronary artery disease Social History Social History Smoking status: Current every day smoker (cigars) Tobacco type: cigars Second hand tobacco smoke exposure: No Alcohol intake: current Alcohol use details: rare Substance use: never Lack of Transportation: No Lack of Food: Never True Current Housing: I Have Housing Concerned About Future Housing: No Difficulty Paying Gas/Electric Bills: No Difficulty Paying for Meds: No Currently Unemployed: No Education: Trade/Vocational Certificate Difficulty w/ Childcare or Family Care: No Living arrangements: with family Occupation/Education: occupation Gender identity (if verbalized by the patient): Male Comments At time of signature, agree with nursing
== END 2022-11-17 15:06 | disposition home or self-care (01) ==
PROVIDERS: Emergency Provider Nurse Practitioner Family; PCP Internal Medicine
DX: H69.93 Unspecified Eustachian tube disorder, bilateral (principal); R42 Dizziness and giddiness; F17.290 Nicotine dependence, other tobacco product, uncomplicated; E66.9 Obesity, unspecified; Z68.26 Body mass index [BMI] 26.0-26.9, adult; E55.9 Vitamin D deficiency, unspecified
CPT/HCPCS: 99213; G0463

== ENCOUNTER 2022-12-03 08:45 | Day surgery (SDC) | payer OTHER, SELFPAY ==
[2022-11-20 11:06] VITALS: BMI 26.6
--- NOTE | 2022-12-03 08:28 | WPDANESEPPF ---
Anes - Initial Pre Proc Eval Procedure: Operation Date: 12/03/22 10:30 Proposed Procedures p Esophagogastroduodenoscopy - Wilmer Jett MD Date/Time: 12/03/22 08:28 Surgeon: Wilmer Jett MD Pre Op Diagnosis: Dysphagia and Unspecified Eosinophilia Patient Data Age: 47 Gender: M Height: 1.57 m Weight: 66 kg Allergies Allergy/AdvReac Type Severity Reaction Status Date / Time No Known Allergies Allergy Verified 11/20/22 10:59 Home Medications Medication Instructions Recorded Confirmed Type cholecalciferol (vitamin D3) 1,250 1,250 mcg PO WEEKLY 11/17/22 11/20/22 History mcg (50,000 unit) capsule loratadine 10 mg tablet (Claritin) 10 mg PO DAILY #30 tabs 11/17/22 11/20/22 Rx oxymetazoline 0.05 % nasal spray 2 spray intranasal Q12H PRN 11/19/22 11/20/22 History (Afrin (oxymetazoline)) Allergy Symptoms Patient hx anesthesia problems: none Family hx anesthesia problems: none Results Review: All pre-operative results and documents have been reviewed as part of the pre-operative evaluation. [facility] Past Medical History Medical History (Updated 11/18/22 @ 00:01 by Jn Zhong) Annual physical exam BMI 27.0-27.9,adult BMI 28.0-28.9,adult BMI 31.0-31.9,adult Colon cancer screening Cough Elevated fasting glucose Elevated glucose Encounter for routine adult health examination with abnormal findings Encounter for routine adult health examination without abnormal findings Encounter to establish care Family history of heart disease Ganglion cyst of dorsum of right wrist GERD (gastroesophageal reflux disease) Hiccups History of kidney stones Hyperlipidemia Kidney stones Obesity On predatory animal exterminator drug therapy Smoker Tobacco abuse Vitamin D deficiency Surgical History Surgical History H/O lithotripsy Family History Family History Mother Ovarian cancer Mother Hypertension Family history of malignant neoplasm Patient's mother is in good health Family history of malignant neoplasm of ovary Father Hypertension Family history of coronary artery disease Family history of malignant neoplasm of skin Grandparent Family history of cardiovascular disease Family history of malignant neoplasm Family history of coronary artery disease Social History Social History Smoking status: Never smoker Tobacco type: cigars Second hand tobacco smoke exposure: No Alcohol intake: current Alcohol use details: rare Substance use: current Substance use type: does not use Lack of Transportation: No Lack of Food: Never True Current Housing: I Have Housing Concerned About Future Housing: No Difficulty Paying Gas/Electric Bills: No Difficulty Paying for Meds: No Currently Unemployed: No Education: Trade/Vocational Certificate Difficulty w/ Childcare or Family Care: No Living arrangements: alone Occupation/Education: occupation Gender identity (if verbalized by the patient): Male Spiritual care concerns: No Anes - Eval Final PreProcedure Day of Procedure 12/03/22 08:28 Patient weight: normal Heart: regular rate and rhythm Lungs: clear to auscultation Airway: Mallampati scale class II Neurological: alert and oriented Last oral intake: >/= 8 hours ASA classification: II Emergent: no Anesthetic plan: proceed Anesthesia type and monitoring: general GIVS and standard monitoring Results Review: All pre-operative results and documents have been reviewed as part of the pre-operative evaluation. Informed Consent: The patient's anesthetic plan and its attendant risks and benefits were discussed with the patient/family/POA. Questions were solicited and answers provided to the satisfaction of the patient/family/POA.
[2022-12-03 09:22] VITALS: BMI 27.0
[2022-12-03 09:36] VITALS: BP 122/94; PULSE 60; RESP 16; TEMP 36.6; O2SAT 100
--- NOTE | 2022-12-03 09:52 | PM.HPGS ---
History of Present Illness History of Present Illness Consent: Risks, benefits, and alternatives have been discussed and questions answered. Patient agrees to proceed with procedure. Chief complaint: Hiccups and Eosinophilia Narrative: Efe Montemayor is a 47 year old male Referred for EGD because of ongoing hiccups. Patient states these symptoms have been present for several years. During this same interval noted to have eosinophilia. For this reason EGD is requested for biopsies of the stomach. Patient denies any dysphagia. He denies any pain. He has previously had heartburn. An EGD 3 years ago was unremarkable. Since that time advised to take pantoprazole. He takes this on a p.r.n. basis. He does not regularly have heartburn presently.Does not take it regularly. Patient denies any known allergies. Family history noncontributory. Review of Systems Review of Systems: Review of systems noncontributory. [facility] Past Medical History Medical History (Updated 11/18/22 @ 00:01 by Jn Zhong) Annual physical exam BMI 27.0-27.9,adult BMI 28.0-28.9,adult BMI 31.0-31.9,adult Colon cancer screening Cough Elevated fasting glucose Elevated glucose Encounter for routine adult health examination with abnormal findings Encounter for routine adult health examination without abnormal findings Encounter to establish care Family history of heart disease Ganglion cyst of dorsum of right wrist GERD (gastroesophageal reflux disease) Hiccups History of kidney stones Hyperlipidemia Kidney stones Obesity On senior living drug therapy Smoker Tobacco abuse Vitamin D deficiency Surgical History Surgical History H/O lithotripsy Family History Family History Mother Ovarian cancer Mother Hypertension Family history of malignant neoplasm Patient's mother is in good health Family history of malignant neoplasm of ovary Father Hypertension Family history of coronary artery disease Family history of malignant neoplasm of skin Grandparent Family history of cardiovascular disease Family history of malignant neoplasm Family history of coronary artery disease Social History Social History Smoking status: Never smoker Tobacco type: cigars Second hand tobacco smoke exposure: No Alcohol intake: current Alcohol use details: rare Substance use: current Substance use type: does not use Lack of Transportation: No Lack of Food: Never True Current Housing: I Have Housing Concerned About Future Housing: No Difficulty Paying Gas/Electric Bills: No Difficulty Paying for Meds: No Currently Unemployed: No Education: Trade/Vocational Certificate Difficulty w/ Childcare or Family Care: No Living arrangements: alone Occupation/Education: occupation Gender identity (if verbalized by the patient): Male Spiritual care concerns: No Meds Home Medications and Allergies Home Medications Medication Instructions Recorded Confirmed Type cholecalciferol (vitamin D3) 1,250 1,250 mcg PO WEEKLY 11/17/22 12/03/22 History mcg (50,000 unit) capsule loratadine 10 mg tablet (Claritin) 10 mg PO DAILY #30 tabs 11/17/22 12/03/22 Rx oxymetazoline 0.05 % nasal spray 2 spray intranasal Q12H PRN 11/19/22 12/03/22 History (Afrin (oxymetazoline)) Allergy Symptoms Allergies Allergy/AdvReac Type Severity Reaction Status Date / Time No Known Allergies Allergy Verified 12/03/22 09:33 Vital Signs Vital Signs - 24 hr 12/03/22 09:36 Temperature 98 F Pulse Rate 60 Respiratory Rate 16 Blood Pressure 122/94 H Pulse Oximetry 100 Exam Narrative: Physical exam reveals patient to be alert. Vital signs stable. HEENT exam is unremarkable. Patient is anicteric. Lungs are clear to auscultation and percussion. Heart is
[2022-12-03] MEDS: LACTATED RINGERS 1,000 ML 150 ML IV CONT (10:03)
[2022-12-03 10:48] VITALS: BP 111/78; PULSE 74; RESP 14; O2SAT 100
[2022-12-03 11:03] VITALS: BP 118/81; PULSE 79; RESP 15; O2SAT 100
[2022-12-03 11:08] VITALS: BP 138/83; PULSE 77; RESP 15; O2SAT 100
--- NOTE | 2022-12-03 11:24 | WPDANESPN ---
Anes - Prog Note Post-Op Date/Time: 12/03/22 11:24 Cardiovascular status: normal Respiratory status: normal Airway patency: baseline Mental status: baseline Post-Op hydration status: normal Vital Signs: Last Vital Signs Temp 36.6 C 12/03/22 09:36 Pulse 79 12/03/22 11:03 Resp 15 12/03/22 11:03 BP 118/81 12/03/22 11:03 Pulse Ox 100 12/03/22 11:03 O2 Del Method Room Air 12/03/22 11:03 Pain Score (VAS): 0 I/O: Intake & Output 12/02/22 12/03/22 12/03/22 23:59 07:59 15:59 Intake Total 300 Balance 300 Post-procedural complaints: none Patient Feedback: Patient satisfied with anesthetic care.
== END 2022-12-03 11:25 | disposition home or self-care (01) ==
PROVIDERS: PCP Internal Medicine; Visit Provider Internal Medicine Gastroenterology
PROC: 0DJ08ZZ Inspection of Upper Intestinal Tract, Via Natural or Artificial Opening Endoscopic (ICD-10-PCS; CPT 43235; principal; 2022-12-03 10:30)
DX: R06.6 Hiccough (principal)
CPT/HCPCS: 43239

== ENCOUNTER 2023-01-21 12:58 | Outpatient (RCR) | payer OTHER, SELFPAY ==
[2023-01-21 13:10] LABS: Basophils Absolute Auto 0.1 K/mm3 (0.0-0.1); Basophils Percent Auto 0.9 % (0.2-1.2); Eosinophils Absolute Auto 0.4 K/mm3 (0-0.3); Eosinophils Percent Auto 5.4 % (0-4.4); Hemoglobin 14.9 g/dL (14.0-18.0); Immature Granulocyte Absolute 0.01 K/mm3 (0.00-0.031); Immature Granulocyte Percent A 0.1 % (0-0.5); Lymphocytes Absolute Auto 2.25 K/mm3 (0.9-3.2); Lymphocytes Percent Auto 33.7 % (18.3-44.2); Mean Corpuscular HGB Conc 34.7 g/dl (32-36); Mean Corpuscular Hemoglobin 35.5 pg (26-34); Mean Corpuscular Volume 102.4 fl (80-100); Mean Platelet Volume 10.2 fl (7.4-10.4); Monocytes Absolute Auto 0.7 K/mm3 (0.1-0.6); Monocytes Percent Auto 10.8 % (2.6-8.5); Neutrophils Absolute Auto 3.3 K/mm3 (1.3-6.7); Neutrophils Percent Auto 49.1 % (45.5-73.1); Platelet Count Result 286 k/mm3 (150-375); Red Cell Distribution Width 13.4 % (11.5-14.5); White Blood Count 6.7 K/mm3 (4.5-10.0)
[2023-01-21 13:13] LABS: Blood Urea Nitrogen 12 mg/dL (8-26); Carbon Dioxide 25 mmol/L (22-30); Chloride 104 mmol/L (98-109); Estimated Glomerular Filt Rate > 60; Glucose 97 mg/dL (70-105); Ionized Calcium (POC) 1.21 mmol/L (1.11-1.31); Potassium 3.8 mmol/L (3.5-4.9); Sodium 141 mmol/L (138-146)
[2023-01-21 16:34] LABS: Alanine Aminotransferase 30 U/L (6-50); Albumin Level 4.2 g/dL (3.5-5.1); Alkaline Phosphatase 66 U/L (38-126); Anion Gap 6 mmol/L (8-16); Aspartate Amino Transferase 28 U/L (17-59); Blood Urea Nitrogen 12 mg/dL (9-20); Calcium 9.1 mg/dL (8.4-10.2); Carbon Dioxide 27 mmol/L (22-30); Chloride 106 mmol/L (98-107); Estimated Glomerular Filt Rate > 60; Glucose 94 mg/dL (65-110); Potassium 3.8 mmol/L (3.4-5.0); Sodium 139 mmol/L (137-145)
--- NOTE | 2023-01-21 19:12 | WPDONCPN ---
Progress Note: A/P (1) Eosinophilia Code(s): D72.10 - Eosinophilia, unspecified Status: Acute Assessment and plan: Patient has chronic eosinophilia and monocytosis likely due to reactive process from environmental allergies all year through. Today, CBC shows stable eosinophils of 0.4K ans monocytes of 0.7K. Hemoglobin is 14.9g/dL and platelets 286K. No intervention needed. Patient will follow up with Dr. Hamilton in 6 months. - Time Spent With Patient Total time spent is greater than 50% in coordination of care (as documented) at patient's floor/unit and/or counseling patient: 25 - 35 minutes Subjective Interval history: Reason for Visit: Chronic Mild Eosinophilia and Monocytosis Current Treatment: Observation only with no need for treatment. HPI: Patient is here for follow up of chronic eosinophilia. patient feels well and denies any new hospitalizations. His last visit with Dr. Hamilton was on 07/05/22 via telephone. there has been no new medical conditions. he continues to suffer from environmental allergies and tells me that he is on two different medications for allergies which he takes in am and pm. He denies any sinus infection. Review of Systems - Review of Systems Patient states that he has environmental allergies all through out the year and is always sneezing or coughing. There has been no sinusitis or need of antibiotics. otherwise he feels well without any fever, chills, night sweats or weight loss. He denies any chest pain, dyspnea, cough or hemoptysis. There is no dizziness, syncope, falls, vision changes. No abdominal pain, nausea, vomiting or diarrhea. There is no hematochezia or melena. No hematuria. Exam Vital signs: Vitals noted in Epic - Constitutional no acute distress - Routine HEENT Exam Head: Present: normal inspection, normocephalic Eye: Present: EOMI, normal appearance ENT: Present: mucous membranes moist, nares patent - Routine Neck Exam Present: full ROM - Routine Respiratory Exam Present: CTAB - Routine Cardiovascular Exam Cardiovascular: Present: RRR, S1, S2 - Routine Abdominal Exam Present: normal bowel sounds - Routine Extremities Exam Present: full ROM - Routine Back/Spine/Pelvis Exam Back/Spine: Present: full ROM - Routine Skin Exam Present: intact - Routine Neurological Exam Present: alert, oriented X3, CN II-XII intact - Routine Psychiatric Exam Present: normal affect, normal thought process PN: Objective Data - Labs CBC & Chem 7: 01/21/23 13:08 01/21/23 13:12 Labs: Laboratory Results - last 24 hr 01/21/23 01/21/23 13:08 13:12 WBC 6.7 RBC 4.20 L Hgb 14.9 Hct 43.0 MCV 102.4 H MCH 35.5 H MCHC 34.7 RDW 13.4 Plt Count 286 MPV 10.2 Immature Gran % (Auto) 0.1 Neut % (Auto) 49.1 Lymph % (Auto) 33.7 Clayton % (Auto) 10.8 H Eos % (Auto) 5.4 H Baso % (Auto) 0.9 Lymph # (Auto) 2.25 Clayton # (Auto) 0.7 H Eos # (Auto) 0.4 H Baso # (Auto) 0.1 Abs Immat Gran (auto) 0.01 Absolute Neuts (auto) 3.3 Absolute Nucleated RBC 0.0 Nucleated RBC % 0.0 Sodium 139 141 Potassium 3.8 3.8 Chloride 106 104 Carbon Dioxide 27 25 Anion Gap 6 L BUN 12 12 D Creatinine 0.80 0.90 Estim Creat Clear Calc Not Reportable Not Reportable Estimated GFR > 60 > 60 Glucose 94 97 Calcium 9.1 POC Venous Ion Calcium 1.21 Total Bilirubin 1.0 AST 28 ALT 30 Alkaline Phosphatase 66 Total Protein 7.0 Albumin 4.2
== END 2023-01-28 10:20 ==
LOC: AMCINF 12:58
PROVIDERS: PCP Internal Medicine; Visit Provider Internal Medicine
DX: D72.829 Elevated white blood cell count, unspecified (principal); E55.9 Vitamin D deficiency, unspecified; E78.5 Hyperlipidemia, unspecified; K21.9 Gastro-esophageal reflux disease without esophagitis; Z79.899 Other long term (current) drug therapy
CPT/HCPCS: 36415; 80047; 80053; 85025

== ENCOUNTER 2023-05-01 08:08 | Outpatient (CLI) | payer OTHER, SELFPAY ==
[2023-05-01 09:16] LABS: Basophils Absolute Auto 0.1 K/mm3 (0.0-0.1); Basophils Percent Auto 1.3 % (0.2-1.2); Eosinophils Absolute Auto 0.7 K/mm3 (0-0.3); Eosinophils Percent Auto 11.9 % (0-4.4); Hematocrit 42.8 % (42.0-52.0); Hemoglobin 14.8 g/dL (14.0-18.0); Immature Granulocyte Absolute 0.01 K/mm3 (0.00-0.031); Immature Granulocyte Percent A 0.2 % (0-0.5); Lymphocytes Absolute Auto 2.29 K/mm3 (0.9-3.2); Lymphocytes Percent Auto 37.2 % (18.3-44.2); Mean Corpuscular HGB Conc 34.6 g/dl (32-36); Mean Corpuscular Hemoglobin 35.4 pg (26-34); Mean Corpuscular Volume 102.4 fl (80-100); Mean Platelet Volume 10.9 fl (7.4-10.4); Monocytes Absolute Auto 0.7 K/mm3 (0.1-0.6); Monocytes Percent Auto 11.2 % (2.6-8.5); Neutrophils Absolute Auto 2.4 K/mm3 (1.3-6.7); Neutrophils Percent Auto 38.2 % (45.5-73.1); Platelet Count Result 272 k/mm3 (150-375); Red Blood Count 4.18 M/mm3 (4.6-6.20); Red Cell Distribution Width 12.9 % (11.5-14.5); White Blood Count 6.2 K/mm3 (4.5-10.0)
[2023-05-01 09:38] LABS: Alanine Aminotransferase 36 U/L (6-50); Albumin Level 3.9 g/dL (3.5-5.1); Alkaline Phosphatase 61 U/L (38-126); Anion Gap 6 mmol/L (8-16); Aspartate Amino Transferase 38 U/L (17-59); Bilirubin,Total 0.9 mg/dL (0.2-1.3); Blood Urea Nitrogen 13 mg/dL (9-20); Calcium 8.8 mg/dL (8.4-10.2); Carbon Dioxide 25 mmol/L (22-30); Chloride 107 mmol/L (98-107); Cholesterol 167 mg/dL (0-200); Estimated Glomerular Filt Rate > 60; Glucose 114 mg/dL (65-110); HDL Direct 74 mg/dL; Potassium 4.2 mmol/L (3.4-5.0); Sodium 138 mmol/L (137-145); Triglycerides 36 mg/dL (<150)
[2023-05-01 09:49] LABS: LDL Cholesterol Direct 71 mg/dL
[2023-05-01 09:53] LABS: Vitamin D 25 Hydroxy 43.4 ng/mL
== END 2023-05-01 08:09 | disposition home or self-care (01) ==
LOC: ANHLAB 08:10
PROVIDERS: PCP Internal Medicine; Visit Provider Internal Medicine
DX: D72.10 Eosinophilia, unspecified (principal); E55.9 Vitamin D deficiency, unspecified; E78.2 Mixed hyperlipidemia; Z79.899 Other long term (current) drug therapy
CPT/HCPCS: 36415; 80053; 80061; 82306; 85025; J2704

== ENCOUNTER 2023-08-12 13:55 | Outpatient (CLI) | payer OTHER, SELFPAY ==
[2023-08-12 14:21] LABS: Basophils Absolute Auto 0.1 K/mm3 (0.0-0.1); Eosinophils Absolute Auto 0.8 K/mm3 (0-0.3); Eosinophils Percent Auto 9.5 % (0-4.4); Hematocrit 42.4 % (42.0-52.0); Hemoglobin 14.6 g/dL (14.0-18.0); Immature Granulocyte Absolute 0.02 K/mm3 (0.00-0.031); Immature Granulocyte Percent A 0.2 % (0-0.5); Lymphocytes Absolute Auto 2.98 K/mm3 (0.9-3.2); Lymphocytes Percent Auto 36.3 % (18.3-44.2); Mean Corpuscular HGB Conc 34.4 g/dl (32-36); Mean Corpuscular Hemoglobin 35.2 pg (26-34); Mean Corpuscular Volume 102.2 fl (80-100); Mean Platelet Volume 10.1 fl (7.4-10.4); Monocytes Absolute Auto 0.6 K/mm3 (0.1-0.6); Monocytes Percent Auto 7.8 % (2.6-8.5); Neutrophils Absolute Auto 3.7 K/mm3 (1.3-6.7); Neutrophils Percent Auto 45.2 % (45.5-73.1); Platelet Count Result 289 k/mm3 (150-375); Red Blood Count 4.15 M/mm3 (4.6-6.20); Red Cell Distribution Width 12.7 % (11.5-14.5); White Blood Count 8.2 K/mm3 (4.5-10.0)
[2023-08-12 14:24] LABS: Blood Urea Nitrogen 8 mg/dL (8-26); Carbon Dioxide 22 mmol/L (22-30); Chloride 106 mmol/L (98-109); Estimated Glomerular Filt Rate > 60; Glucose 85 mg/dL (70-105); Ionized Calcium (POC) 1.12 mmol/L (1.11-1.31); Potassium 3.8 mmol/L (3.5-4.9); Sodium 140 mmol/L (138-146)
[2023-08-12 20:16] LABS: Alanine Aminotransferase 24 U/L (6-50); Albumin Level 3.8 g/dL (3.5-5.1); Alkaline Phosphatase 68 U/L (38-126); Anion Gap 7 mmol/L (8-16); Aspartate Amino Transferase 35 U/L (17-59); Bilirubin,Total 1.3 mg/dL (0.2-1.3); Blood Urea Nitrogen 9 mg/dL (9-20); Carbon Dioxide 22 mmol/L (22-30); Chloride 109 mmol/L (98-107); Estimated Glomerular Filt Rate > 60; Glucose 84 mg/dL (65-110); Sodium 138 mmol/L (137-145)
== END 2023-08-12 13:56 | disposition home or self-care (01) ==
LOC: ANHLAB 13:57
PROVIDERS: Internal Medicine; PCP Internal Medicine; Visit Provider Internal Medicine Hematology & Oncology
DX: D72.829 Elevated white blood cell count, unspecified (principal)
CPT/HCPCS: 36415; 80047; 80053; 85025

== ENCOUNTER 2024-01-22 11:16 | Outpatient (CLI) | payer BC, SELFPAY ==
--- NOTE | ~2024-01-22 | XR_ITS ---
XR abdomen/kub 1V 01/22/2024 11:45 INDICATION: Abdomen pain TECHNIQUE: KUB COMPARISON: None FINDINGS: Bowel gas pattern is normal. There is no evidence of free air, mass, organomegaly, ascites or obstruction. No abnormal calculi are seen. The bones appear intact. IMPRESSION: 1: No acute abdominal abnormality identified. Reviewed, dictated and finalized at location B.
[2024-01-22 12:13] LABS: Basophils Absolute Auto 0.1 K/mm3 (0.0-0.1); Basophils Percent Auto 0.9 % (0.2-1.2); Eosinophils Absolute Auto 0.3 K/mm3 (0-0.3); Eosinophils Percent Auto 3.2 % (0-4.4); Hematocrit 44.2 % (42.0-52.0); Hemoglobin 15.3 g/dL (14.0-18.0); Immature Granulocyte Absolute 0.02 K/mm3 (0.00-0.031); Immature Granulocyte Percent A 0.2 % (0-0.5); Lymphocytes Absolute Auto 2.22 K/mm3 (0.9-3.2); Lymphocytes Percent Auto 22.8 % (18.3-44.2); Mean Corpuscular HGB Conc 34.6 g/dl (32-36); Mean Corpuscular Hemoglobin 35.3 pg (26-34); Mean Corpuscular Volume 102.1 fl (80-100); Mean Platelet Volume 10.5 fl (7.4-10.4); Monocytes Absolute Auto 0.8 K/mm3 (0.1-0.6); Monocytes Percent Auto 8.3 % (2.6-8.5); Neutrophils Absolute Auto 6.3 K/mm3 (1.3-6.7); Neutrophils Percent Auto 64.6 % (45.5-73.1); Platelet Count Result 267 k/mm3 (150-375); Red Blood Count 4.33 M/mm3 (4.6-6.20); Red Cell Distribution Width 13.5 % (11.5-14.5); White Blood Count 9.8 K/mm3 (4.5-10.0)
[2024-01-22 12:17] LABS: Appearance Urine Clear (Clear); Bacteria Urine None Seen /hpf; Bilirubin Urine Negative (Negative); Blood Urine Negative (Negative); Color Urine Yellow (Yellow); Glucose Urine UA Negative (Negative); Ketones Urine 3+ mg/dL (Negative); Leukocyte Esterase Ur Trace LEU/UL (Negative); Nitrate Urine Negative (Negative); Non Pathogenic Casts 0-2; Protein Urine Negative (Negative); RBC Urine 0-2 /hpf (0-2); Specific Grav Ur 1.017 (1.001-1.035); Squamous Epithelial Cell Urine None Seen /hpf (Few); WBC Urine 0-5 /hpf (0-3); pH Urine 5.5 (5.0-9.0)
[2024-01-22 12:23] LABS: Alanine Aminotransferase 25 U/L (6-50); Albumin Level 4.3 g/dL (3.5-5.1); Alkaline Phosphatase 72 U/L (38-126); Anion Gap 9 mmol/L (4-12); Aspartate Amino Transferase 27 U/L (17-59); Bilirubin,Total 1.5 mg/dL (0.2-1.3); Blood Urea Nitrogen 11 mg/dL (9-20); Calcium 9.2 mg/dL (8.4-10.2); Carbon Dioxide 24 mmol/L (22-30); Chloride 103 mmol/L (98-107); Cholesterol 174 mg/dL (0-200); Estimated Glomerular Filt Rate > 60; Glucose 93 mg/dL (65-110); HDL Direct 74 mg/dL; Potassium 3.9 mmol/L (3.4-5.0); Sodium 136 mmol/L (137-145); Triglycerides 59 mg/dL (<150)
[2024-01-22 12:34] LABS: LDL Cholesterol Direct 86 mg/dL
[2024-01-22 12:35] LABS: Add Urine Microscopic? YES
== END 2024-01-22 11:17 | disposition home or self-care (01) ==
LOC: ANHLAB 11:20
PROVIDERS: PCP Internal Medicine; Visit Provider Internal Medicine
DX: E78.5 Hyperlipidemia, unspecified (principal); R10.9 Unspecified abdominal pain; Z79.899 Other long term (current) drug therapy
CPT/HCPCS: 36415; 74018; 80053; 80061; 81001; 85025

== ENCOUNTER 2024-06-10 12:54 | Outpatient (CLI) | payer BC, SELFPAY ==
--- NOTE | ~2024-06-10 | CT_ITS ---
EXAMINATION: CT shoulder LT wo con DATE: 06/10/2024 13:16 INDICATION: Left shoulder pain. TECHNIQUE: Computed tomography (CT) of the left shoulder was performed without intravenous contrast. Automated exposure control and iterative reconstruction technique were employed. The dose-length prod uct was 166.87 mGy-cm. COMPARISON: None FINDINGS: The acromion undersurface is curved in morphology with anterior hook (type III). No fractur e. There is mild osteoarthritis of glenohumeral joint and severe osteoarthritis of acromioclavicular joint. There is no asymmetric fatty atrophy of the rotator cuff muscle bellies. IMPRESSION: 1. Polyarticular osteoarthritis. Reviewed, dictated and finalized at location A. [employer] EDUC[employer]IST
== END 2024-06-10 12:55 | disposition home or self-care (01) ==
PROVIDERS: PCP Internal Medicine; Visit Provider Internal Medicine
DX: M25.812 Other specified joint disorders, left shoulder (principal); M19.012 Primary osteoarthritis, left shoulder
CPT/HCPCS: 73200

== ENCOUNTER 2024-08-13 07:49 | Outpatient (CLI) | payer BC, SELFPAY ==
--- OUTSIDE RECORDS SUMMARY | 2024-08-13 07:53 | XMS_ITS | Clinical Summary ---
Author Organization [facility] Address [address] [place] [id number] Care Team Providers Care Elementary Assistant Principal Name Role Phone Unavailable Primary Care Provider Unavailabl e Social History Tobacco Use Types Packs/Day Years Used Date Smoking Tobacco: Never Assessed Sex and Gender Information Value Date Recorded Sex Assigned at Not on file Legal Sex Male 6:14 PM CDT Gender Identity Not on file Sexual Orientation Not on file Plan of Treatment Health Maintenance Due Date Last Done Comments Colorectal Cancer Screening Colonoscopy (10 Years) 1975 Annual Physical 09/06/1978 Hepatitis C 09/06/1993 DTaP, Tdap and Td Vaccines ( 1 - Tdap) 09/06/1994 Hepatitis B Vaccines (1 of 3 - 19+ 3-dose series) 09/06/1994 COVID-19 Vaccine (2023-2 5 season) 2024 Influenza Adult (#1) 2024 Meningococcal B Vaccine Aged Out No l onger eligible based on patient's age to complete this topic Meningococcal Vaccine Aged Out No peewee donovan eligible based on patient's age to complete this topic Pneumococcal Vaccine: Pediat rics (0 to 5 Years) and At-Risk Patients (6 to 64 Years) Aged Out No longer eligible b ased on patient's age to complete this topic RSV Immunizations Under 20 Months Aged Out No longer eligible based on patient's age to complete this topic
--- OUTSIDE RECORDS SUMMARY | 2024-08-13 07:53 | XMS_ITS | Clinical Summary ---
Author Organization [facility] Address [address] [place] [id number] Phone Care Team Providers Care Consultant Teacher Name Role Phone Andrew Tobin MD Primary Care Provider [phone] Allergies No known active allergies Medications Medication Sig Dispensed Refills Start Date End Date Status omeprazole (PriLOSEC) [address] capsule omeprazole 40 mg capsule,delayed release Active ondansetron ODT (ZOFRAN-ODT) 4 MG dispersible tablet ondansetron 4 mg disintegrating tablet DIS ONE T PO Q 6 TO 8 H PRF NAUSEA Active tamsulosin (FLOMAX) 0.4 MG 24 hr capsule tamsulosin 0.4 mg capsule TK ONE C PO QD Active pantoprazole (PROTONIX) 40 MG EC tablet TK 1 T PO QAM 01/04/2020 Active meloxicam (MOBIC) 15 MG tablet 05/11/2020 Active oxyCODONE-acetamino phen (PERCOCET) 5-325 MG per tablet TK 1 T PO Q 6 H PRN P 05/18/2020 Active traMADol (ULTRAM) 50 MG tablet Take 50 mg by mouth every 6 (six) hours if needed for pain 11/18/2020 Active Active Problems Problem Noted Date Diagnosed Date 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 04/11/2020 Rupture of anterior cruciate ligament of right k nee 04/11/2020 Overview (07/25/2020): Added automatically from request for surgery [id number] Disorder of bursa of shoulder region 07/16/2019 Full thickness rotator cuff tear 06/04/2019 Traumatic rupture of biceps tendon 06/04/2019 Calculus of kidney 12/05/2014 Immunizations Name Administration Dates Next Due Influenza TIV (IM) 07/02/2018 Influenza, Injectable, Quadrivalent 05/10/2020 Family History Medical History Relation Comments Hypertensive disorder Father Malignant neoplastic disease Mother Kidney stone Sibling Kidney disease Neg Hx Relation Status Comments Father Mother Sibling Social History Tobacco Use Types Packs/Day Years Used Date Smoking Tobacco: Some Days Smokeless Tobacco: Never Tobacco Cessation:Ready to Q uit: No; Counseling Given: Yes Alcohol Use Standard Drinks/Week Comments No 0 (1 standard drink = 0.6 oz pur e alcohol) Sex and Gender Information Value Date Recorded Sex Assigned at Not on file Gender Identity Not on file Sexual Orientation Not on file Last Filed Vital Signs Vital Sign Reading Time Taken Comments Blood Pressure 130/72 02/06/2021 1:15 PM CDT Pulse - - Temperature 37.7 C (99.9 F) 02/06/2021 1:15 PM CDT Respiratory Rate 18 02/06/2021 1:15 PM CDT Oxygen Saturation - - Inhaled Oxygen Concentration - - Weight 73.5 kg (162 lb) 02/06/2021 1:15 PM CDT Height 154.9 cm (5' 1 ) 02/06/2021 1:15 PM CDT Body Mass Index 30.61 02/06/2021 1:15 PM CDT Plan of Treatment Health Maintenance Due Date Last Done Comments Influenza Vaccine (#1) 2024 07/02/2018 Care Teams Consultant Teacher Relationship Specialty Start Date End Date Andrew Tobin MD [address] [place] [id number] PCP - General Internal Medicine 02/06/21
[2024-08-13 09:09] LABS: Alanine Aminotransferase 31 U/L (6-50); Albumin Level 3.9 g/dL (3.5-5.1); Alkaline Phosphatase 61 U/L (38-126); Anion Gap 6 mmol/L (4-12); Aspartate Amino Transferase 30 U/L (17-59); Bilirubin,Total 0.8 mg/dL (0.2-1.3); Blood Urea Nitrogen 10 mg/dL (9-20); Carbon Dioxide 27 mmol/L (22-30); Chloride 106 mmol/L (98-107); Cholesterol 158 mg/dL (0-200); Estimated Glomerular Filt Rate > 60; Glucose 102 mg/dL (65-110); HDL Direct 77 mg/dL; Potassium 4.3 mmol/L (3.4-5.0); Sodium 139 mmol/L (137-145); Triglycerides 39 mg/dL (<150)
[2024-08-13 09:20] LABS: LDL Cholesterol Direct 73 mg/dL
[2024-08-13 09:33] LABS: Free T4 Free Thyroxine 1.08 ng/dL (0.78-2.19); Vitamin D 25 Hydroxy 25.5 ng/mL
== END 2024-08-13 07:50 | disposition home or self-care (01) ==
PROVIDERS: PCP Internal Medicine; Visit Provider Internal Medicine
DX: Z00.01 Encounter for general adult medical examination with abnormal findings (principal); R73.01 Impaired fasting glucose; E78.5 Hyperlipidemia, unspecified; E55.9 Vitamin D deficiency, unspecified; Z79.899 Other long term (current) drug therapy
CPT/HCPCS: 36415; 80053; 80061; 82306; 84439; 84443

== ENCOUNTER 2025-02-16 07:13 | Outpatient (CLI) | payer BC, SELFPAY ==
[2025-02-16 08:13] LABS: Hemoglobin A1C 5.3 % (<5.7)
[2025-02-16 08:18] LABS: Anion Gap 4 mmol/L (4-12); Blood Urea Nitrogen 10 mg/dL (9-20); Calcium 9.0 mg/dL (8.4-10.2); Carbon Dioxide 25 mmol/L (22-30); Chloride 109 mmol/L (98-107); Cholesterol 165 mg/dL (0-200); Estimated Glomerular Filt Rate > 60; Glucose 110 mg/dL (65-110); HDL Direct 77 mg/dL; Potassium 4.3 mmol/L (3.4-5.0); Sodium 138 mmol/L (137-145); Triglycerides 54 mg/dL (<150)
== END 2025-02-16 07:14 | disposition home or self-care (01) ==
LOC: ANHLAB 07:14
PROVIDERS: PCP Internal Medicine; Visit Provider Internal Medicine
DX: E78.2 Mixed hyperlipidemia (principal); Z79.899 Other long term (current) drug therapy; R73.09 Other abnormal glucose; E55.9 Vitamin D deficiency, unspecified
CPT/HCPCS: 36415; 80048; 80061; 82172; 82306; 83036